=== PATIENT | male | born 1985 | race Caucasian/White ===

== ENCOUNTER 2021-05-23 01:45 | Emergency (ER) | payer OTHER ==
[~2021-05-23] VITALS: Ht 167.6 cm; Wt 68.0 kg
[2021-05-23 01:55] VITALS: BP 119/68
--- NOTE | 2021-05-23 01:55 | NUR ---
TO BED AMBULATORY
--- NOTE | 2021-05-23 02:29 | NUR ---
JACKELYN EMT, AT BEDSIDE FOR EKG.
--- NOTE | 2021-05-23 02:30 | NUR ---
BIBS FOR C/C LEFT CHEST WALL PAIN, NONRADIATING, 10/10 X 2 DAYS. PT STATES "IT FEELS LIKE WHEN YOU GRAB HEAVY STUFF." DENIES INJURY TO LEFT ARM OR CHEST. NO NOTED EDEMA. CAP REFILL < 3 SECONDS. BILATERAL RADIAL PULSES STRONG AND EQUAL. DENIES SOB. MED HX: CEREBRAL PALSY ALLERGIES: NKA
[2021-05-23] MEDS: KETOROLAC 30 MG/ML VIAL IM ONE (02:56)
[2021-05-23] MEDS: LORazepam 1 MG TAB PO ONE (02:57)
--- NOTE | 2021-05-23 03:05 | NUR ---
XRAY AT BEDSIDE.
[2021-05-23] MEDS ORDERED: DIAZ5TAB7 PO (04:48)
[2021-05-23 05:00] VITALS: BP 103/57
--- NOTE | 2021-05-23 05:00 | NUR ---
Patient discharged with v/s stable. Written and verbal after care instructions given and explained. Patient alert, oriented and verbalized understanding of instructions. Ambulatory with steady gait WITH CANE. All questions addressed prior to discharge. ID band removed. Patient advised to follow up with PMD. Rx of VALIUM given. Patient educated on indication of medication including possible reaction and side effects. Opportunity to ask questions provided and answered.
== END 2021-05-23 05:00 | disposition home or self-care (01) ==
LOC: MED 01:45
DX: R07.81 Pleurodynia (principal); X50.0XXA Overexertion from strenuous movement or load, initial encounter; Y93.89 Activity, other specified; Y92.89 Other specified places as the place of occurrence of the external cause; Y99.8 Other external cause status
CPT/HCPCS: 71045; 93005; 99283; J1885

== ENCOUNTER 2022-02-14 04:31 | Emergency (ER) | payer OTHER ==
[~2022-02-14] VITALS: Ht 160 cm; Wt 68.0 kg
[~2022-02-14 04:31] MED LIST: DIAZ5TAB8 PO
[2022-02-14 04:40] VITALS: BP 124/75
--- NOTE | 2022-02-14 04:40 | NUR ---
TO BED VIA WHEELCHAIR
--- NOTE | 2022-02-14 04:55 | NUR ---
Dr. Mohamud examining patient.
--- NOTE | 2022-02-14 04:57 | NUR ---
36 Y/O MLAE BIB FAMILY, C/O CP AND SOB X1 MO. PT STATES HE CANNOT SLEEP. PT WAS SEEN AT AN URGENT CARE AND WAS GIVEN ALBUTEROL. PT STATES THE MEDICATION IS NOT WORKING. PT IS NERVOUS; UNLABORED BREATHING, AND SPEAKING IN FULL SENTENCES, NO WHEEZING OR TACHYPNEA. SKIN IS PINK, WARM, AND DRY WITH NO TACHYCARDIA. A/OX4, GCS-15. PT IS AMBULATORY WITH THE USE OF A CANE. PT STATES WHEN HE BREATHS IN HE FEELS "A CRACKING SENSATION." NKA DENIES PMH
[2022-02-14] MEDS: LORazepam 2 MG/ML VIAL IM ONE (05:16)
[2022-02-14 05:24] VITALS: BP 124/75
--- NOTE | 2022-02-14 05:25 | NUR ---
Patient discharged with v/s stable. Written and verbal after care instructions given and explained. Patient verbalized understanding. Ambulatory with steady gait. All questions addressed prior to discharge. Advised to follow up with PMD. A/OX4, VSS, UNLABORED BREATHING, AMBULATORY, AND CALM DEMEANOR.
== END 2022-02-14 05:23 | disposition home or self-care (01) ==
LOC: MED 04:31
DX: M62.838 Other muscle spasm (principal); F41.0 Panic disorder [episodic paroxysmal anxiety]; Z79.899 Other long term (current) drug therapy
CPT/HCPCS: 96372; 99283; J2060